=== PATIENT | female | born 1940 | race African-American/Black ===

== ENCOUNTER 2016-11-21 04:25 | Emergency (ER) | payer MEDICARE, MEDICAID ==
[~2016-11-21] VITALS: Ht 165.1 cm; Wt 59.0 kg
[~2016-11-21 04:25] MED LIST: AMIODARONE PO; AMLO2.5T45 PO; CALCIUM ACETATE PO; FAMO20TA8 PO; HYDR-3992 PO; LOSA100T14 PO; METO25TA6 PO; NEPVIT PO; PANT40TA4 PO; RISP0.5T19 PO
[2016-11-21] MEDS ORDERED: ACETAMINOPHEN 325MG TABLET PO ONE (07:00)
[2016-11-21 12:47] LABS: HEMOGLOBIN. 10.5 g/dL (12.0-16.0); MEAN CORPUSCULAR HEMOGLOBIN 28.8 pg (28.0-32.0); MEAN CORPUSCULAR VOLUME 90.4 fL (81.0-99.0); MEAN PLATELET VOLUME 7.9 fl (7.4-10.4); PLATELET 189 x1000/uL (130-400); RED BLOOD CELL COUNT 3.65 mill/uL (4.2-5.4); RED CELL DISTRIBUTION WIDTH 19.2 % (11.6-14.6)
[2016-11-21 12:56] LABS: INR 1.1; PROTHROMBIN TIME 11.1 sec
[2016-11-21 13:20] VITALS: BP 149/69
[2016-11-21 13:37] LABS: PLATELET ESTIMATE NORMAL
== END 2016-11-21 13:21 | disposition home or self-care (01) ==
LOC: ER 04:31
DX: I73.9 Peripheral vascular disease, unspecified (principal); I10 Essential (primary) hypertension; J44.9 Chronic obstructive pulmonary disease, unspecified
CPT/HCPCS: 36415; 80048; 85025; 85610; 99284

== ENCOUNTER 2017-02-11 22:04 | Inpatient (IN) | payer MEDICARE, OTHER ==
[~2017-02-11] VITALS: Ht 162.6 cm; Wt 60.3 kg
[2017-02-12] MEDS ORDERED: ONDANSETRON HCL 4MG/2ML VIAL IV STA (01:24)
[2017-02-12] MEDS ORDERED: MORPHINE SULFATE 4 MG/ML CPJ (NOT FOR IM USE) IV STA (01:24)
[2017-02-12] MEDS ORDERED: SODIUM CHLORIDE 0.9% 500 ML IV ONE (01:24)
[2017-02-12 01:51] LABS: BASOPHILS % 0.4 % (0.0-2.0); EOSINOPHILS % 3.3 % (0.0-5.0); HEMATOCRIT. 38.4 % (36.0-48.0); HEMOGLOBIN. 12.2 g/dL (12.0-16.0); LYMPHOCYTES % 12.6 % (20.0-50.0); MEAN CORPUSCULAR HEMOGLOBIN 30.6 pg (28.0-32.0); MEAN CORPUSCULAR VOLUME 96.3 fL (81.0-99.0); MEAN PLATELET VOLUME 7.3 fl (7.4-10.4); MONOCYTES % 14.3 % (2.0-8.0); NEUTROPHILS % 69.4 % (40.0-76.0); PLATELET 240 x1000/uL (130-400); RED BLOOD CELL COUNT 3.98 mill/uL (4.2-5.4); RED CELL DISTRIBUTION WIDTH 17.6 % (11.6-14.6)
[2017-02-12 01:58] LABS: INR 1.2
[2017-02-12 02:02] LABS: CARBON DIOXIDE 30 mEq/L (21-32); CHLORIDE 94 mEq/L (98-107); TROPONIN I 0.03 ng/mL (0.00-0.04)
[2017-02-12] MEDS ORDERED: HEPARIN 25,000 UNITS PREMIX 500 ML IV PRN (05:00)
[2017-02-12] MEDS ORDERED: HEPARIN 5000 UNITS/ML VIAL IV SCH (05:00)
[2017-02-12] MEDS ORDERED: HEPARIN 5000 UNITS/ML VIAL IV PRN ×2 (05:00)
[2017-02-12] MEDS ORDERED: HEPARIN BOLUS PRN aPTT <36 IV ×2 (05:15→06:07)
[2017-02-12] MEDS ORDERED: HEPARIN BOLUS PRN aPTT 37-44 IV ×2 (05:15→06:08)
[2017-02-12] MEDS ORDERED: HEPARIN 80 UNITS/KG BOLUS IV SCH ×2 (05:15→06:15)
[2017-02-12] MEDS ORDERED: HEPARIN 25,000 UNITS PREMIX 500 ML IV SCH (05:15)
[2017-02-12] MEDS ORDERED: SODIUM CHLORIDE 0.9% 10ML VIAL ONE (06:00)
[2017-02-12] MEDS ORDERED: IOHEXOL-300 100 ML BOTTLE ONE (06:00)
[2017-02-12 06:29] LABS: CLARITY URINE CLEAR (CLEAR); COLOR URINE YELLOW (YELLOW); GLUCOSE URINE NEGATIVE (NEGATIVE); KETONES URINE NEGATIVE (NEGATIVE); LEUKOCYTE ESTERASE URINE NEGATIVE (NEGATIVE); NITRITE URINE NEGATIVE (NEGATIVE); OCCULT BLOOD URINE NEGATIVE (NEGATIVE); PH URINE 8.5 (4.5-8.0); PROTEIN URINE 3+ (NEGATIVE); SPECIFIC GRAVITY URINE 1.017 (1.005-1.030); UROBILINOGEN URINE 0.2 E.U./dL (0.2-1.0)
[2017-02-12] MEDS ORDERED: NITROGLYCERIN 0.4MG TABLET SL SL PRN (07:30)
[2017-02-12] MEDS ORDERED: GUAIFENESIN 200MG/10ML SUGAR FREE UDC PO PRN (07:30)
[2017-02-12] MEDS ORDERED: CLONIDINE 0.1MG TABLET PO PRN (07:30)
[2017-02-12] MEDS ORDERED: TRAMADOL 50MG TABLET PO PRN (07:30)
[2017-02-12] MEDS ORDERED: ACETAMINOPHEN 325MG TABLET PO PRN (07:30)
[2017-02-12] MEDS ORDERED: ONDANSETRON HCL 4MG/2ML VIAL IV PRN (07:30)
[2017-02-12] MEDS ORDERED: PIPERACILLIN/TAZ 3.375G PREMIX 50 ML IV SCH (07:30)
[2017-02-12] MEDS ORDERED: ZOLPIDEM TARTRATE 5MG TABLET PO PRN (07:30)
[2017-02-12] MEDS ORDERED: DOCUSATE SODIUM 100MG CAPSULE PO PRN (07:30)
[2017-02-12] MEDS ORDERED: IPRATROPIUM/ALBUTEROL 0.5-3(2.5)MG/3ML NEB INH PRN (07:30)
[2017-02-12] MEDS ORDERED: ENOXAPARIN 40MG/0.4ML SYR SUBCUT SCH (07:30)
[2017-02-12] MEDS ORDERED: NA PHOS,M-B/NA PHOS,DI-BA ENEMA 118ML PR PRN (07:30)
[2017-02-12 08:20] VITALS: BP 121/72
[2017-02-12] MEDS: SEVELAMER CARBONATE 800 MG TABLET PO SCH ×3 (08:24→17:50)
[2017-02-12 09:00] VITALS: BP 121/51
[2017-02-12] MEDS: GUAIFENESIN/DM 600MG/30MG ER TAB 12HR PO SCH ×2 (09:00→21:40)
[2017-02-12] MEDS: METOPROLOL TARTRATE 25MG TABLET PO SCH ×2 (09:00→21:00)
[2017-02-12] MEDS ORDERED: FAMOTIDINE 20MG/2ML VIAL IV SCH ×2 (09:00)
[2017-02-12] MEDS: LISINOPRIL 20MG TABLET PO SCH ×2 (09:00→21:00)
[2017-02-12] MEDS: FOLIC ACID/VITAMIN B COMP W-C TABLET PO SCH (09:00)
[2017-02-12] MEDS: ASPIRIN 325MG EC TABLET PO SCH (09:00)
[2017-02-12] MEDS ORDERED: PIPERACILLIN/TAZ 2.25G PREMIX 50 ML IV SCH (10:00)
[2017-02-12 12:28] VITALS: BP 143/64
[2017-02-12] MEDS: MAGNESIUM/ALUMINUM HYDROXIDE/SIMETHICONE 30ML UDC PO PRN ×2 (13:00→23:12)
[2017-02-12] MEDS ORDERED: PNEUMOCOCCAL 23-VAL P-SAC VAC 0.5 ML IM ONE (15:30)
[2017-02-12] MEDS: DIPHENHYDRAMINE 50MG/ML VIAL IV PRN ×2 (16:00→22:27)
[2017-02-12 16:37] VITALS: BP 166/75
[2017-02-12] MEDS: LORAZEPAM 2MG/ML CPJ IV PRN (18:07)
[2017-02-12 19:07] LABS: CREATINE KINASE MB FRACTION 1.1 ng/mL (0.5-3.6); TROPONIN I 0.03 ng/mL (0.00-0.04)
[2017-02-12] MEDS ORDERED: LISI-604 PO (20:02)
[2017-02-12] MEDS ORDERED: OMPERAZOLE (20:02)
[2017-02-12] MEDS ORDERED: ENOXAPARIN 30MG/0.3ML SYR SUBCUT SCH (21:00)
[2017-02-12 21:04] VITALS: BP 106/55
[2017-02-12] MEDS: PIPERACILLIN/TAZ 2.25G PREMIX 50 ML IV SCH ×2 (21:40→21:41)
[2017-02-12 23:54] VITALS: BP 118/63
[2017-02-13] MEDS: LORAZEPAM 2MG/ML CPJ IV PRN (00:08)
[2017-02-13 02:53] LABS: CREATINE KINASE 110 IU/L (26-192); CREATINE KINASE MB FRACTION 0.7 ng/mL (0.5-3.6)
[2017-02-13 03:25] LABS: TROPONIN I < 0.02 ng/mL (0.00-0.04)
[2017-02-13] MEDS: PIPERACILLIN/TAZ 2.25G PREMIX 50 ML IV SCH ×3 (05:35→21:07)
[2017-02-13 07:10] LABS: HEMATOCRIT 36.7 % (36.0-48.0); HEMOGLOBIN 11.7 g/dL (12.0-16.0); MEAN CORPUSCULAR HEMOGLOBIN 30.5 pg (28.0-32.0); PLATELET 205 x1000/uL (130-400); RED BLOOD CELL COUNT 3.83 mill/uL (4.2-5.4); RED CELL DISTRIBUTION WIDTH 17.3 % (11.6-14.6)
[2017-02-13] MEDS: SEVELAMER CARBONATE 800 MG TABLET PO SCH ×3 (07:50→17:50)
[2017-02-13 07:53] LABS: PHOSPHORUS 3.8 mg/dL (2.5-4.9)
[2017-02-13 08:00] VITALS: BP 108/56
[2017-02-13] MEDS: METOPROLOL TARTRATE 25MG TABLET PO SCH ×2 (09:00→21:00)
[2017-02-13] MEDS ORDERED: FOLIC ACID/VITAMIN B COMP W-C TABLET PO SCH (09:00)
[2017-02-13] MEDS: LISINOPRIL 20MG TABLET PO SCH ×2 (09:00→21:00)
[2017-02-13] MEDS: ASPIRIN 325MG EC TABLET PO SCH (09:00)
[2017-02-13] MEDS ORDERED: BARIUM SULFATE 450ML ORAL SUSP ONE (11:35)
[2017-02-13 12:00] VITALS: BP 103/52
[2017-02-13] MEDS: PANTOPRAZOLE SODIUM 40 MG/VIAL IV SCH (12:13)
[2017-02-13] MEDS: MAGNESIUM/ALUMINUM HYDROXIDE/SIMETHICONE 30ML UDC PO PRN (15:16)
[2017-02-13] MEDS: GUAIFENESIN/DM 600MG/30MG ER TAB 12HR PO SCH ×2 (15:22→21:00)
[2017-02-13] MEDS: FOLIC ACID/VITAMIN B COMP W-C TABLET PO SCH (15:22)
[2017-02-13 16:00] VITALS: BP 102/53
[2017-02-13 20:00] VITALS: BP 97/47
[2017-02-13] MEDS: DIPHENHYDRAMINE 50MG/ML VIAL IV PRN (22:51)
[2017-02-14] VITALS (8 sets, daily range): BP systolic 94–120; BP diastolic 43–59
[2017-02-14] MEDS: LORAZEPAM 2MG/ML CPJ IV PRN (02:15)
[2017-02-14] MEDS: PIPERACILLIN/TAZ 2.25G PREMIX 50 ML IV SCH ×3 (05:19→21:10)
[2017-02-14 06:20] LABS: HEMATOCRIT 34.1 % (36.0-48.0); HEMOGLOBIN 10.8 g/dL (12.0-16.0); MEAN CORPUSCULAR HEMOGLOBIN 30.6 pg (28.0-32.0); MEAN CORPUSCULAR VOLUME 96.7 fL (81.0-99.0); PLATELET 176 x1000/uL (130-400); RED BLOOD CELL COUNT 3.53 mill/uL (4.2-5.4); RED CELL DISTRIBUTION WIDTH 17.2 % (11.6-14.6)
[2017-02-14 06:22] LABS: INR 1.2
[2017-02-14] MEDS: SEVELAMER CARBONATE 800 MG TABLET PO SCH ×3 (07:50→18:58)
[2017-02-14] MEDS: ASPIRIN 325MG EC TABLET PO SCH (09:00)
[2017-02-14] MEDS: LISINOPRIL 20MG TABLET PO SCH ×2 (09:00→21:00)
[2017-02-14] MEDS: METOPROLOL TARTRATE 25MG TABLET PO SCH ×2 (09:00→21:13)
[2017-02-14] MEDS: FOLIC ACID/VITAMIN B COMP W-C TABLET PO SCH (09:00)
[2017-02-14] MEDS: DIPHENHYDRAMINE 50MG/ML VIAL IV PRN ×2 (10:02→21:14)
[2017-02-14] MEDS: GUAIFENESIN/DM 600MG/30MG ER TAB 12HR PO SCH ×2 (10:46→21:13)
[2017-02-14] MEDS ORDERED: HYDROXYZINE 25MG TABLET PO PRN (11:30)
[2017-02-14] MEDS: MAGNESIUM/ALUMINUM HYDROXIDE/SIMETHICONE 30ML UDC PO PRN (11:36)
[2017-02-14] MEDS ORDERED: SIMETHICONE 40 MG/0.6 ML 30ML ONE ×2 (14:02→14:41)
[2017-02-14] MEDS ORDERED: SODIUM CHLORIDE 0.9% 10ML VIAL ONE (14:02)
[2017-02-14] MEDS ORDERED: MIDAZOLAM HCL 5 MG/5 ML VIAL IV PRN (14:40)
[2017-02-14] MEDS ORDERED: FENTANYL CITRATE/PF 50MCG/ML 2ML VIAL ONE (14:42)
[2017-02-14] MEDS ORDERED: MIDAZOLAM HCL 5 MG/5 ML VIAL ONE (14:42)
[2017-02-14] MEDS: PANTOPRAZOLE SODIUM 40 MG/VIAL IV SCH (16:06)
[2017-02-14] MEDS: CALAMINE LOTION 120ML TOP PRN ×2 (16:55→21:13)
[2017-02-15 00:22] VITALS: BP 126/76
[2017-02-15 04:00] VITALS: BP 131/83
[2017-02-15] MEDS: PIPERACILLIN/TAZ 2.25G PREMIX 50 ML IV SCH (05:44)
[2017-02-15 07:06] LABS: HEMATOCRIT 32.6 % (36.0-48.0); HEMOGLOBIN 10.2 g/dL (12.0-16.0); MEAN CORPUSCULAR HEMOGLOBIN 30.6 pg (28.0-32.0); MEAN CORPUSCULAR VOLUME 97.5 fL (81.0-99.0); PLATELET 164 x1000/uL (130-400); RED BLOOD CELL COUNT 3.35 mill/uL (4.2-5.4); RED CELL DISTRIBUTION WIDTH 16.9 % (11.6-14.6)
[2017-02-15 08:00] VITALS: BP 138/57
[2017-02-15] MEDS: SEVELAMER CARBONATE 800 MG TABLET PO SCH ×2 (09:28→13:07)
[2017-02-15] MEDS: GUAIFENESIN/DM 600MG/30MG ER TAB 12HR PO SCH (09:28)
[2017-02-15] MEDS: FOLIC ACID/VITAMIN B COMP W-C TABLET PO SCH (09:28)
[2017-02-15] MEDS: PANTOPRAZOLE SODIUM 40 MG/VIAL IV SCH (09:28)
[2017-02-15] MEDS: LISINOPRIL 20MG TABLET PO SCH (09:29)
[2017-02-15] MEDS: ASPIRIN 325MG EC TABLET PO SCH (09:29)
[2017-02-15] MEDS: METOPROLOL TARTRATE 25MG TABLET PO SCH (09:29)
[2017-02-15 12:00] VITALS: BP 152/54
[2017-02-15 16:00] VITALS: BP 120/57
[2017-02-15 16:03] VITALS: BP 152/60
== END 2017-02-15 19:10 | DRG 177 ==
LOC: ER 22:30 → 6WST 02-12 05:12 → EDBEDREQ 02-12 05:24 → ENRESERV 02-12 06:19 → SUPCPDRO 02-12 07:24
PROVIDERS: ADMIT Internal Medicine; ATTEND Internal Medicine
PROC: 0DJ68ZZ Inspection of Stomach, Via Natural or Artificial Opening Endoscopic (ICD-10-PCS; principal; 2017-02-14 15:00)
DX: J69.0 Pneumonitis due to inhalation of food and vomit (principal); J96.00 Acute respiratory failure, unspecified whether with hypoxia or hypercapnia; I26.99 Other pulmonary embolism without acute cor pulmonale; E44.0 Moderate protein-calorie malnutrition; N18.6 End stage renal disease; I12.0 Hypertensive chronic kidney disease with stage 5 chronic kidney disease or end stage renal disease; I48.0 Paroxysmal atrial fibrillation; K22.0 Achalasia of cardia; E87.1 Hypo-osmolality and hyponatremia; E11.22 Type 2 diabetes mellitus with diabetic chronic kidney disease; J44.9 Chronic obstructive pulmonary disease, unspecified; D63.8 Anemia in other chronic diseases classified elsewhere; K21.9 Gastro-esophageal reflux disease without esophagitis; K44.9 Diaphragmatic hernia without obstruction or gangrene; K57.90 Diverticulosis of intestine, part unspecified, without perforation or abscess without bleeding; E11.51 Type 2 diabetes mellitus with diabetic peripheral angiopathy without gangrene; Z79.01 Long term (current) use of anticoagulants; Z99.2 Dependence on renal dialysis; Z99.81 Dependence on supplemental oxygen; Z68.22 Body mass index [BMI] 22.0-22.9, adult
CPT/HCPCS: 36415; 70551; 71010; 71260; 74177; 74220; 80048; 80053; 81001; 82550; 82553; 82962; 83690; 83880; 84100; 84484; 85025; 85027; 85610; 85730; 92610; 93005; 96361; 96365; 96375; 97162; 97166; 97530; 97535; 99291; A4216; C1893; C9113; J1200; J1644; J1650; J2060; J2250; J2270; J2405; J2543; J3010; J3490; J7030; J7050; Q9967

== ENCOUNTER 2017-07-08 10:39 | Inpatient (IN) | payer MEDICARE, MEDICAID, OTHER ==
[~2017-07-08] VITALS: Ht 157.5 cm; Wt 66.7 kg
[~2017-07-08 10:39] MED LIST changes: +ACET-2853 PO; -AMIODARONE PO; -AMLO2.5T45 PO; +ASPI-867 PO; -CALCIUM ACETATE PO; +CARV3.1242 PO; +CLON-457 PO; +DIPH25CA83 PO; +DOCU-138 PO; +FAMO-135 PO; -FAMO20TA8 PO; -HYDR-3992 PO; -LOSA100T14 PO; -METO25TA6 PO; -NEPVIT PO; +NITR0.4T SL; +ONDA4TAB5 PO; -PANT40TA4 PO; -RISP0.5T19 PO; +SEVE800T8 PO; +TRAM50TA3 PO; +ZOLP5TAB2 PO; +[UNRECOGNIZED DRUG - CODE] PO
[2017-07-08 12:28] LABS: HEMATOCRIT. 29.7 % (36.0-48.0); HEMOGLOBIN. 9.3 g/dL (12.0-16.0); MEAN CORPUSCULAR HEMOGLOBIN 28.5 pg (28.0-32.0); MEAN CORPUSCULAR VOLUME 90.9 fL (81.0-99.0); MEAN PLATELET VOLUME 8.1 fl (7.4-10.4); PLATELET 294 x1000/uL (130-400); RED BLOOD CELL COUNT 3.27 mill/uL (4.2-5.4); RED CELL DISTRIBUTION WIDTH 18.5 % (11.6-14.6)
[2017-07-08 12:36] LABS: CHLORIDE 100 mEq/L (98-107)
[2017-07-08 12:46] LABS: INR 1.2; PROTHROMBIN TIME 12.7 sec (9.4-11.6)
[2017-07-08 13:04] LABS: CLARITY URINE TURBID (CLEAR); COLOR URINE YELLOW (YELLOW); KETONES URINE TRACE (NEGATIVE); LEUKOCYTE ESTERASE URINE 3+ (NEGATIVE); NITRITE URINE NEGATIVE (NEGATIVE); OCCULT BLOOD URINE 3+ (NEGATIVE); PH URINE 7.5 (4.5-8.0); PROTEIN URINE 4+ (NEGATIVE); SPECIFIC GRAVITY URINE 1.028 (1.005-1.030); UROBILINOGEN URINE 0.2 E.U./dL (0.2-1.0)
[2017-07-08] MEDS ORDERED: SODIUM CHLORIDE 0.9% 1,000 ML IV ONE (13:07)
[2017-07-08] MEDS ORDERED: CEFTRIAXONE 1 G PREMIX 50 ML IV ONE (13:15)
[2017-07-08] MEDS ORDERED: LEVOFLOXACIN 750MG PREMIX 150 ML IV ONE (13:15)
[2017-07-08 13:18] LABS: PLATELET ESTIMATE NORMAL
[2017-07-08] MEDS ORDERED: TRAMADOL 50MG TABLET PO PRN (16:30)
[2017-07-08] MEDS ORDERED: DEXTROSE 50% WATER 50ML SYRINGE IV ONE (17:00)
[2017-07-08] MEDS ORDERED: IPRATROPIUM/ALBUTEROL 0.5-3(2.5)MG/3ML NEB INH PRN (17:45)
[2017-07-08] MEDS ORDERED: GUAIFENESIN 200MG/10ML SUGAR FREE UDC PO PRN (17:45)
[2017-07-08] MEDS ORDERED: ACETAMINOPHEN 325MG TABLET PO PRN (17:45)
[2017-07-08] MEDS ORDERED: MAGNESIUM/ALUMINUM HYDROXIDE/SIMETHICONE 30ML UDC PO PRN (17:45)
[2017-07-08] MEDS ORDERED: DOCUSATE SODIUM 100MG CAPSULE PO PRN (17:45)
[2017-07-08] MEDS ORDERED: ONDANSETRON HCL 4MG/2ML VIAL IV PRN (17:45)
[2017-07-08] MEDS ORDERED: DEXTROSE 50% WATER 50ML SYRINGE IV PRN (17:45)
[2017-07-08] MEDS ORDERED: CLONIDINE 0.1MG TABLET PO PRN (17:45)
[2017-07-08] MEDS ORDERED: NITROGLYCERIN 0.4MG TABLET SL SL PRN (17:45)
[2017-07-08] MEDS ORDERED: PIPERACILLIN/TAZ 3.375G PREMIX 50 ML IV SCH (17:45)
[2017-07-08] MEDS ORDERED: NA PHOS,M-B/NA PHOS,DI-BA ENEMA 118ML PR PRN (18:30)
[2017-07-08 19:50] VITALS: BP 167/90
[2017-07-08 20:00] VITALS: BP 167/90
[2017-07-08] MEDS ORDERED: VANCOMYCIN 1250MG in DEXTROSE 5% WATER 250ML IV NR (20:00)
[2017-07-08] MEDS: FAMOTIDINE 20MG/2ML VIAL IV SCH (20:42)
[2017-07-08] MEDS: ENOXAPARIN 30MG/0.3ML SYR SUBCUT SCH ×2 (20:42→21:00)
[2017-07-08] MEDS ORDERED: ZOLPIDEM TARTRATE 5MG TABLET PO PRN (21:00)
[2017-07-08] MEDS: INSULIN LISPRO 100 UNITS/ML SUBCUT SCH (21:00)
[2017-07-08] MEDS: CARVEDILOL 3.125 MG TABLET PO SCH (21:39)
[2017-07-08] MEDS: AMLODIPINE 10MG TABLET PO SCH (21:39)
[2017-07-08] MEDS: BLOOD SUGAR DIAGNOSTIC STRIP TEST SCH (21:46)
[2017-07-08] MEDS: PIPERACILLIN/TAZ 2.25G PREMIX 50 ML IV SCH (23:18)
[2017-07-09] VITALS: BP 186/93
[2017-07-09] MEDS: NITROGLYCERIN 0.4MG/HR PATCH TOP SCH ×2 (00:24→09:00)
[2017-07-09 01:07] LABS: CREATINE KINASE MB FRACTION 2.5 ng/mL (0.5-3.6); TROPONIN I 0.04 ng/mL (0.00-0.04)
[2017-07-09 04:00] VITALS: BP 191/92
[2017-07-09] MEDS ORDERED: MORPHINE SULFATE 4 MG/ML CPJ (NOT FOR IM USE) IV PRN (05:30)
[2017-07-09] MEDS: PIPERACILLIN/TAZ 2.25G PREMIX 50 ML IV SCH ×3 (05:43→21:06)
[2017-07-09] MEDS: CARVEDILOL 3.125 MG TABLET PO SCH ×2 (05:44→17:24)
[2017-07-09] MEDS: BLOOD SUGAR DIAGNOSTIC STRIP TEST SCH ×4 (06:28→21:06)
[2017-07-09] MEDS: INSULIN LISPRO 100 UNITS/ML SUBCUT SCH ×4 (06:32→20:44)
[2017-07-09] MEDS: SEVELAMER CARBONATE 800 MG TABLET PO SCH ×3 (07:50→17:11)
[2017-07-09 08:00] VITALS: BP 152/69
[2017-07-09] MEDS: FOLIC ACID/VITAMIN B COMP W-C TABLET PO SCH (09:00)
[2017-07-09] MEDS: ASPIRIN 325MG EC TABLET PO SCH (09:00)
[2017-07-09] MEDS: AMLODIPINE 10MG TABLET PO SCH (09:00)
[2017-07-09 12:00] VITALS: BP 136/66
[2017-07-09 13:16] LABS: AMMONIA < 25 uMol/L (<32)
[2017-07-09 13:21] LABS: CREATINE KINASE MB FRACTION 2.5 ng/mL (0.5-3.6); TROPONIN I 0.05 ng/mL (0.00-0.04)
[2017-07-09 16:00] VITALS: BP 138/68
[2017-07-09] MEDS: LORAZEPAM 0.5MG TABLET PO PRN (19:54)
[2017-07-09 20:00] VITALS: BP 208/188
[2017-07-09] MEDS: FAMOTIDINE 20MG/2ML VIAL IV SCH (20:11)
[2017-07-09] MEDS: ENOXAPARIN 30MG/0.3ML SYR SUBCUT SCH (20:11)
[2017-07-09] MEDS: DIPHENHYDRAMINE 50MG/ML VIAL IV PRN (20:25)
[2017-07-09] MEDS ORDERED: EPOETIN ALFA 10000UNITS/ML VIAL SUBCUT SCH (21:00)
[2017-07-10] VITALS: BP 119/59
[2017-07-10] MEDS: CARVEDILOL 3.125 MG TABLET PO SCH ×2 (05:28→17:35)
[2017-07-10] MEDS: PIPERACILLIN/TAZ 2.25G PREMIX 50 ML IV SCH ×3 (05:29→21:41)
[2017-07-10 06:00] VITALS: BP 125/53
[2017-07-10] MEDS: BLOOD SUGAR DIAGNOSTIC STRIP TEST SCH ×4 (06:03→21:27)
[2017-07-10] MEDS: INSULIN LISPRO 100 UNITS/ML SUBCUT SCH ×4 (06:03→21:00)
[2017-07-10 07:52] LABS: HEMATOCRIT 29.4 % (36.0-48.0); HEMOGLOBIN 9.5 g/dL (12.0-16.0); MEAN CORPUSCULAR HEMOGLOBIN 28.9 pg (28.0-32.0); MEAN CORPUSCULAR VOLUME 89.1 fL (81.0-99.0); PLATELET 208 x1000/uL (130-400); RED BLOOD CELL COUNT 3.29 mill/uL (4.2-5.4); RED CELL DISTRIBUTION WIDTH 18.5 % (11.6-14.6)
[2017-07-10 08:04] VITALS: BP 130/85
[2017-07-10 08:24] LABS: AMMONIA < 25 uMol/L (<32)
[2017-07-10] MEDS: FOLIC ACID/VITAMIN B COMP W-C TABLET PO SCH (08:54)
[2017-07-10] MEDS: ASPIRIN 325MG EC TABLET PO SCH (08:54)
[2017-07-10] MEDS: SEVELAMER CARBONATE 800 MG TABLET PO SCH ×3 (08:54→17:34)
[2017-07-10] MEDS: NITROGLYCERIN 0.4MG/HR PATCH TOP SCH (08:54)
[2017-07-10] MEDS: AMLODIPINE 10MG TABLET PO SCH (08:54)
[2017-07-10 12:32] VITALS: BP 122/47
[2017-07-10] MEDS ORDERED: VANCOMYCIN 1 G PREMIX 200 ML IV NR (13:00)
[2017-07-10 16:34] VITALS: BP 117/57
[2017-07-10 20:50] VITALS: BP 113/51
[2017-07-10] MEDS: FAMOTIDINE 20MG/2ML VIAL IV SCH (21:41)
[2017-07-10] MEDS: ENOXAPARIN 30MG/0.3ML SYR SUBCUT SCH (21:42)
[2017-07-11] VITALS: BP 132/52
[2017-07-11 04:00] VITALS: BP 135/55
[2017-07-11] MEDS: BLOOD SUGAR DIAGNOSTIC STRIP TEST SCH ×4 (06:25→21:09)
[2017-07-11] MEDS: CARVEDILOL 3.125 MG TABLET PO SCH ×2 (06:26→19:17)
[2017-07-11] MEDS: PIPERACILLIN/TAZ 2.25G PREMIX 50 ML IV SCH ×2 (06:26→19:09)
[2017-07-11 07:40] LABS: HEMATOCRIT 34.4 % (36.0-48.0); HEMOGLOBIN 10.6 g/dL (12.0-16.0); MEAN CORPUSCULAR HEMOGLOBIN 28.2 pg (28.0-32.0); MEAN CORPUSCULAR VOLUME 91.9 fL (81.0-99.0); PLATELET 170 x1000/uL (130-400); RED BLOOD CELL COUNT 3.74 mill/uL (4.2-5.4); RED CELL DISTRIBUTION WIDTH 18.2 % (11.6-14.6)
[2017-07-11 07:45] VITALS: BP 140/56
[2017-07-11] MEDS: INSULIN LISPRO 100 UNITS/ML SUBCUT SCH ×4 (07:50→21:00)
[2017-07-11] MEDS: AMLODIPINE 10MG TABLET PO SCH (09:00)
[2017-07-11] MEDS: NITROGLYCERIN 0.4MG/HR PATCH TOP SCH (09:00)
[2017-07-11] MEDS: SEVELAMER CARBONATE 800 MG TABLET PO SCH ×3 (09:09→19:09)
[2017-07-11] MEDS: FOLIC ACID/VITAMIN B COMP W-C TABLET PO SCH (09:11)
[2017-07-11] MEDS: ASPIRIN 325MG EC TABLET PO SCH (09:11)
[2017-07-11] MEDS: LORAZEPAM 0.5MG TABLET PO PRN (11:00)
[2017-07-11 12:12] VITALS: BP 153/59
[2017-07-11] MEDS: DIPHENHYDRAMINE 50MG/ML VIAL IV PRN (13:14)
[2017-07-11 16:24] VITALS: BP 139/83
[2017-07-11 20:30] VITALS: BP 131/65
[2017-07-11] MEDS: ENOXAPARIN 30MG/0.3ML SYR SUBCUT SCH (21:00)
[2017-07-11] MEDS: FAMOTIDINE 20MG/2ML VIAL IV SCH (21:15)
[2017-07-12] VITALS (8 sets, daily range): BP systolic 110–153; BP diastolic 53–87
[2017-07-12] MEDS: PIPERACILLIN/TAZ 2.25G PREMIX 50 ML IV SCH ×2 (02:45→09:17)
[2017-07-12] MEDS: BLOOD SUGAR DIAGNOSTIC STRIP TEST SCH ×4 (06:01→21:00)
[2017-07-12] MEDS: CARVEDILOL 3.125 MG TABLET PO SCH ×2 (06:21→18:00)
[2017-07-12 06:57] LABS: HEMOGLOBIN 10.7 g/dL (12.0-16.0); HEMOGLOBIN. 10.7 g/dL (12.0-16.0); MEAN CORPUSCULAR HEMOGLOBIN 28.2 pg (28.0-32.0); MEAN CORPUSCULAR VOLUME 89.7 fL (81.0-99.0); MEAN PLATELET VOLUME 8.3 fl (7.4-10.4); PLATELET 191 x1000/uL (130-400); RED CELL DISTRIBUTION WIDTH 18.3 % (11.6-14.6)
[2017-07-12] MEDS: INSULIN LISPRO 100 UNITS/ML SUBCUT SCH ×4 (07:50→21:00)
[2017-07-12] MEDS: AMLODIPINE 10MG TABLET PO SCH (09:00)
[2017-07-12 09:16] LABS: PLATELET ESTIMATE NORMAL
[2017-07-12] MEDS: NITROGLYCERIN 0.4MG/HR PATCH TOP SCH (09:16)
[2017-07-12] MEDS: ASPIRIN 325MG EC TABLET PO SCH (09:16)
[2017-07-12] MEDS: SEVELAMER CARBONATE 800 MG TABLET PO SCH ×3 (09:16→17:50)
[2017-07-12] MEDS: FOLIC ACID/VITAMIN B COMP W-C TABLET PO SCH (09:16)
[2017-07-12] MEDS: ENOXAPARIN 30MG/0.3ML SYR SUBCUT SCH (21:07)
[2017-07-12] MEDS: FAMOTIDINE 20MG/2ML VIAL IV SCH (21:07)
[2017-07-13] VITALS: BP 149/67
[2017-07-13 04:00] VITALS: BP 151/63
[2017-07-13] MEDS: CARVEDILOL 3.125 MG TABLET PO SCH ×2 (05:56→18:06)
[2017-07-13] MEDS: SUCRALFATE 1 G/10 ML UDC PO SCH ×3 (05:57→18:06)
[2017-07-13] MEDS: BLOOD SUGAR DIAGNOSTIC STRIP TEST SCH ×3 (06:27→18:07)
[2017-07-13 07:10] LABS: HEMOGLOBIN 12.3 g/dL (12.0-16.0); MEAN CORPUSCULAR HEMOGLOBIN 28.4 pg (28.0-32.0); PLATELET 212 x1000/uL (130-400); RED BLOOD CELL COUNT 4.35 mill/uL (4.2-5.4); RED CELL DISTRIBUTION WIDTH 18.3 % (11.6-14.6)
[2017-07-13 07:32] LABS: PHOSPHORUS 3.2 mg/dL (2.5-4.9)
[2017-07-13] MEDS: INSULIN LISPRO 100 UNITS/ML SUBCUT SCH ×3 (07:50→17:50)
[2017-07-13 08:23] VITALS: BP 162/75
[2017-07-13] MEDS ORDERED: AMLODIPINE 5MG TABLET PO SCH (09:00)
[2017-07-13] MEDS: ASPIRIN 325MG EC TABLET PO SCH (09:52)
[2017-07-13] MEDS: FOLIC ACID/VITAMIN B COMP W-C TABLET PO SCH (09:52)
[2017-07-13] MEDS: NITROGLYCERIN 0.4MG/HR PATCH TOP SCH (09:52)
[2017-07-13] MEDS ORDERED: SODIUM POLYSTYRENE SULFONATE 15 G/60 ML BOT PO NR (09:52)
[2017-07-13] MEDS: SEVELAMER CARBONATE 800 MG TABLET PO SCH ×3 (09:53→18:06)
[2017-07-13 12:04] VITALS: BP 132/65
[2017-07-13 16:50] VITALS: BP 138/75
== END 2017-07-13 18:30 | DRG 871 ==
LOC: ER 11:13 → 6WST 13:30 → ENRESERV 16:12 → 6WST 07-09 03:30
PROVIDERS: ADMIT Internal Medicine; ATTEND Internal Medicine
PROC: 5A1D70Z Performance of Urinary Filtration, Intermittent, Less than 6 Hours Per Day (ICD-10-PCS; principal; 2017-07-09)
PROC: 5A1D70Z Performance of Urinary Filtration, Intermittent, Less than 6 Hours Per Day (ICD-10-PCS; 2017-07-10)
PROC: 5A1D70Z Performance of Urinary Filtration, Intermittent, Less than 6 Hours Per Day (ICD-10-PCS; 2017-07-11)
PROC: 5A1D70Z Performance of Urinary Filtration, Intermittent, Less than 6 Hours Per Day (ICD-10-PCS; 2017-07-12)
DX: A41.9 Sepsis, unspecified organism (principal); G92 Toxic encephalopathy; J96.00 Acute respiratory failure, unspecified whether with hypoxia or hypercapnia; I13.2 Hypertensive heart and chronic kidney disease with heart failure and with stage 5 chronic kidney disease, or end stage renal disease; E44.0 Moderate protein-calorie malnutrition; J18.1 Lobar pneumonia, unspecified organism; L89.159 Pressure ulcer of sacral region, unspecified stage; N18.6 End stage renal disease; I27.20 Pulmonary hypertension, unspecified; E11.22 Type 2 diabetes mellitus with diabetic chronic kidney disease; I50.43 Acute on chronic combined systolic (congestive) and diastolic (congestive) heart failure; N39.0 Urinary tract infection, site not specified; E87.5 Hyperkalemia; R31.0 Gross hematuria; J44.9 Chronic obstructive pulmonary disease, unspecified; Z99.2 Dependence on renal dialysis; M21.612 Bunion of left foot; M21.611 Bunion of right foot; M20.40 Other hammer toe(s) (acquired), unspecified foot; K21.9 Gastro-esophageal reflux disease without esophagitis; Z91.19 Patient's noncompliance with other medical treatment and regimen; D63.8 Anemia in other chronic diseases classified elsewhere; Z99.81 Dependence on supplemental oxygen; Z86.711 Personal history of pulmonary embolism; Z78.1 Physical restraint status; Z79.899 Other long term (current) drug therapy; Z79.82 Long term (current) use of aspirin; Z68.26 Body mass index [BMI] 26.0-26.9, adult
CPT/HCPCS: 36415; 70450; 71045; 80048; 80053; 80202; 81003; 82140; 82550; 82553; 82962; 83036; 83605; 84100; 84132; 84484; 85025; 85027; 85610; 87040; 87086; 93005; 93970; 96365; 96366; 96375; 99285; A6261; C1893; J0696; J0885; J1200; J1650; J1956; J2405; J2543; J3370; J3490; J7030; J7050; J7060

== ENCOUNTER 2017-09-05 09:22 | Inpatient (IN) | payer MEDICARE, MEDICAID, OTHER ==
[~2017-09-05] VITALS: Ht 160 cm; Wt 54.9 kg
[2017-09-05] MEDS ORDERED: IPRATROPIUM BROMIDE (0.02%) 0.5MG/2.5ML NEB HHN STA (09:32)
[2017-09-05] MEDS ORDERED: NITROGLYCERIN OINT 1GM/INCH UDPKT TD STA (09:32)
[2017-09-05] MEDS ORDERED: METHYLPREDNISOLONE SOD SUCC 125 MG/2 ML VIAL IV STA (09:32)
[2017-09-05] MEDS ORDERED: ALBUTEROL (0.083%) 2.5MG/3ML NEB HHN STA (09:32)
[2017-09-05 10:10] LABS: INR 1.1; PROTHROMBIN TIME 10.9 sec (9.4-11.6)
[2017-09-05 10:12] LABS: CHLORIDE 97 mEq/L (98-107)
[2017-09-05 10:15] LABS: HEMATOCRIT. 30.8 % (36.0-48.0); HEMOGLOBIN. 9.8 g/dL (12.0-16.0); MEAN CORPUSCULAR HEMOGLOBIN 28.8 pg (28.0-32.0); MEAN CORPUSCULAR VOLUME 90.6 fL (81.0-99.0); MEAN PLATELET VOLUME 9.2 fl (7.4-10.4); PLATELET 226 x1000/uL (130-400); RED BLOOD CELL COUNT 3.41 mill/uL (4.2-5.4); RED CELL DISTRIBUTION WIDTH 16.7 % (11.6-14.6)
[2017-09-05 10:36] LABS: PLATELET ESTIMATE NORMAL
[2017-09-05 11:47] LABS: BG BASE EXCESS 0.1 mmol/L (-2.0-2.0); BG BILEVEL POS AIRWAY PRESSURE ST=15/5; BG CARBOXYHEMOGLOBIN 1.3 % (0.5-1.5); BG DEOXYHEMOGLOBIN 0.9 % (0.0-5.0); BG FRACTION INSPIRED OXYGEN 60; BG METHEMOGLOBIN 0.3 % (0.0-1.5); BG OXYHEMOGLOBIN 97.5 % (94.0-97.0); BG PCO2 56.4 mmHg (35.0-45.0); BG PH 7.298 (7.350-7.450); BG PO2 142.4 mmHg (75.0-100.0); BG PRESSURE SUPPORT 10; BG SAMPLE SITE RIGHT BRACHIAL; BG TOTAL HEMOGLOBIN 8.9 g/dL (12.0-18.0); BG VENT MODE MASK - BIPAP; BG VENT RATE 16 set
[2017-09-05] MEDS ORDERED: DOCUSATE SODIUM 100MG CAPSULE PO PRN (14:30)
[2017-09-05] MEDS ORDERED: IPRATROPIUM/ALBUTEROL 0.5-3(2.5)MG/3ML NEB INH PRN (14:30)
[2017-09-05] MEDS ORDERED: GUAIFENESIN 200MG/10ML SUGAR FREE UDC PO PRN (14:30)
[2017-09-05] MEDS ORDERED: CLONIDINE 0.1MG TABLET PO PRN (14:30)
[2017-09-05] MEDS ORDERED: IPRATROPIUM/ALBUTEROL 0.5-3(2.5)MG/3ML NEB HHN PRN (16:15)
[2017-09-05 18:30] VITALS: BP 157/74
[2017-09-05] MEDS: METHYLPREDNISOLONE SOD SUCC 40 MG/ML VIAL IV SCH (18:53)
[2017-09-05 20:00] VITALS: BP 150/80
[2017-09-05] MEDS: BUDESONIDE 0.5MG/2ML NEB HHN SCH (20:13)
[2017-09-05] MEDS: IPRATROPIUM/ALBUTEROL 0.5-3(2.5)MG/3ML NEB HHN SCH (20:13)
[2017-09-05 21:00] VITALS: BP 135/65
[2017-09-05] MEDS: ONDANSETRON HCL 4MG/2ML VIAL IV PRN (21:23)
[2017-09-05] MEDS: ACETAMINOPHEN 325MG TABLET PO PRN (21:24)
[2017-09-05 22:00] VITALS: BP 134/66
[2017-09-05 22:28] VITALS: BP 150/80
[2017-09-06] VITALS (11 sets, daily range): BP systolic 121–176; BP diastolic 52–76
[2017-09-06] MEDS: IPRATROPIUM/ALBUTEROL 0.5-3(2.5)MG/3ML NEB HHN SCH ×6 (01:06→21:38)
[2017-09-06] MEDS: METHYLPREDNISOLONE SOD SUCC 40 MG/ML VIAL IV SCH (08:43)
[2017-09-06] MEDS: AMLODIPINE 10MG TABLET PO SCH (08:44)
[2017-09-06] MEDS: ASPIRIN 81MG EC TABLET PO SCH (08:44)
[2017-09-06] MEDS: ONDANSETRON HCL 4MG/2ML VIAL IV PRN (10:01)
[2017-09-06] MEDS: ACETAMINOPHEN 325MG TABLET PO PRN ×3 (10:08→22:12)
[2017-09-06 10:10] LABS: HEMATOCRIT. 27.9 % (36.0-48.0); HEMOGLOBIN. 8.6 g/dL (12.0-16.0); MEAN CORPUSCULAR HEMOGLOBIN 27.8 pg (28.0-32.0); MEAN CORPUSCULAR VOLUME 90.4 fL (81.0-99.0); MEAN PLATELET VOLUME 9.4 fl (7.4-10.4); PLATELET 143 x1000/uL (130-400); RED BLOOD CELL COUNT 3.08 mill/uL (4.2-5.4); RED CELL DISTRIBUTION WIDTH 16.7 % (11.6-14.6)
[2017-09-06] MEDS: BUDESONIDE 0.5MG/2ML NEB HHN SCH ×2 (10:10→21:38)
[2017-09-06 10:18] LABS: BG BASE EXCESS -0.8 mmol/L (-2.0-2.0); BG CARBOXYHEMOGLOBIN 0.5 % (0.5-1.5); BG DEOXYHEMOGLOBIN 1.8 % (0.0-5.0); BG FRACTION INSPIRED OXYGEN 36; BG HCO3 ACT 25.3 mmol/L (22.0-26.0); BG METHEMOGLOBIN 0.3 % (0.0-1.5); BG OXYHEMOGLOBIN 97.4 % (94.0-97.0); BG PCO2 48.9 mmHg (35.0-45.0); BG PH 7.331 (7.350-7.450); BG PO2 111.9 mmHg (75.0-100.0); BG SAMPLE SITE RIGHT BRACHIAL; BG VENT MODE NASAL CANNULA
[2017-09-06 10:39] LABS: CHLORIDE 98 mEq/L (98-107)
[2017-09-06] MEDS: MAGNESIUM/ALUMINUM HYDROXIDE/SIMETHICONE 30ML UDC PO PRN (12:10)
[2017-09-06] MEDS: HYDROCODONE/APAP 7.5/325MG 1 TAB TABLET PO PRN ×2 (17:25→22:29)
[2017-09-06 19:17] LABS: CREATINE KINASE 16 IU/L (26-192)
[2017-09-06 19:18] LABS: CREATINE KINASE MB FRACTION 0.6 ng/mL (0.5-3.6)
[2017-09-06] MEDS: NITROGLYCERIN OINT 1GM/INCH UDPKT TD SCH (22:17)
[2017-09-07] VITALS (10 sets, daily range): BP systolic 128–146; BP diastolic 56–85
[2017-09-07] MEDS: IPRATROPIUM/ALBUTEROL 0.5-3(2.5)MG/3ML NEB HHN SCH ×6 (00:44→21:51)
[2017-09-07] MEDS: NITROGLYCERIN OINT 1GM/INCH UDPKT TD SCH ×4 (05:31→23:27)
[2017-09-07 07:43] LABS: HEMATOCRIT 26.4 % (36.0-48.0); HEMOGLOBIN 8.3 g/dL (12.0-16.0); MEAN CORPUSCULAR HEMOGLOBIN 28.4 pg (28.0-32.0); MEAN CORPUSCULAR VOLUME 90.4 fL (81.0-99.0); PLATELET 184 x1000/uL (130-400); RED BLOOD CELL COUNT 2.92 mill/uL (4.2-5.4); RED CELL DISTRIBUTION WIDTH 16.7 % (11.6-14.6)
[2017-09-07] MEDS: ASPIRIN 81MG EC TABLET PO SCH (09:00)
[2017-09-07] MEDS: AMLODIPINE 10MG TABLET PO SCH (09:00)
[2017-09-07] MEDS: METHYLPREDNISOLONE SOD SUCC 40 MG/ML VIAL IV SCH (09:00)
[2017-09-07] MEDS: BUDESONIDE 0.5MG/2ML NEB HHN SCH ×2 (09:00→21:50)
[2017-09-07] MEDS: MAGNESIUM/ALUMINUM HYDROXIDE/SIMETHICONE 30ML UDC PO PRN (11:07)
[2017-09-07] MEDS: HYDROCODONE/APAP 7.5/325MG 1 TAB TABLET PO PRN ×2 (11:10→23:31)
[2017-09-07 15:53] LABS: PLATELET ESTIMATE NORMAL
[2017-09-07] MEDS ORDERED: EPOETIN ALFA 10000UNITS/ML VIAL SUBCUT SCH (21:00)
[2017-09-08] VITALS (10 sets, daily range): BP systolic 100–143; BP diastolic 55–80
[2017-09-08] MEDS: ACETAMINOPHEN 325MG TABLET PO PRN (00:29)
[2017-09-08] MEDS: IPRATROPIUM/ALBUTEROL 0.5-3(2.5)MG/3ML NEB HHN SCH ×6 (01:15→20:08)
[2017-09-08] MEDS: MORPHINE SULFATE 4 MG/ML CPJ (NOT FOR IM USE) IV PRN ×3 (02:21→22:33)
[2017-09-08] MEDS: NITROGLYCERIN OINT 1GM/INCH UDPKT TD SCH ×3 (06:44→17:05)
[2017-09-08] MEDS: AMLODIPINE 10MG TABLET PO SCH (08:12)
[2017-09-08] MEDS: ASPIRIN 81MG EC TABLET PO SCH (08:12)
[2017-09-08] MEDS: METHYLPREDNISOLONE SOD SUCC 40 MG/ML VIAL IV SCH (08:12)
[2017-09-08] MEDS: BUDESONIDE 0.5MG/2ML NEB HHN SCH ×2 (08:24→20:08)
[2017-09-08] MEDS: MAGNESIUM/ALUMINUM HYDROXIDE/SIMETHICONE 30ML UDC PO PRN (11:12)
[2017-09-09] MEDS: IPRATROPIUM/ALBUTEROL 0.5-3(2.5)MG/3ML NEB HHN SCH ×7 (00:25→21:31)
[2017-09-09] MEDS: NITROGLYCERIN OINT 1GM/INCH UDPKT TD SCH ×4 (01:05→18:00)
[2017-09-09] MEDS: ACETAMINOPHEN 325MG TABLET PO PRN ×2 (01:06→16:57)
[2017-09-09 06:17] LABS: HEMATOCRIT. 24.3 % (36.0-48.0); HEMOGLOBIN. 7.9 g/dL (12.0-16.0); MEAN CORPUSCULAR HEMOGLOBIN 28.7 pg (28.0-32.0); PLATELET 275 x1000/uL (130-400); RED BLOOD CELL COUNT 2.73 mill/uL (4.2-5.4); RED CELL DISTRIBUTION WIDTH 16.3 % (11.6-14.6)
[2017-09-09 06:59] LABS: CHLORIDE 97 mEq/L (98-107)
[2017-09-09 08:00] VITALS: BP 138/65
[2017-09-09] MEDS: BUDESONIDE 0.5MG/2ML NEB HHN SCH ×2 (09:08→21:31)
[2017-09-09] MEDS: METHYLPREDNISOLONE SOD SUCC 40 MG/ML VIAL IV SCH (09:16)
[2017-09-09] MEDS: ASPIRIN 81MG EC TABLET PO SCH (09:16)
[2017-09-09] MEDS: AMLODIPINE 10MG TABLET PO SCH (09:16)
[2017-09-09 12:15] VITALS: BP 130/56
[2017-09-09] MEDS: ONDANSETRON HCL 4MG/2ML VIAL IV PRN ×2 (14:28→20:21)
[2017-09-09] MEDS: MAGNESIUM/ALUMINUM HYDROXIDE/SIMETHICONE 30ML UDC PO PRN (14:28)
[2017-09-09] MEDS ORDERED: PANTOPRAZOLE SODIUM 40 MG/VIAL IV NR (14:45)
[2017-09-09] MEDS ORDERED: CALCIUM CARBONATE 500MG TABLET CHEW PO PRN (15:30)
[2017-09-09 16:00] VITALS: BP 139/64
[2017-09-09 17:44] LABS: PLATELET ESTIMATE NORMAL
[2017-09-09 20:00] VITALS: BP 120/68
[2017-09-09] MEDS: PANTOPRAZOLE SODIUM 40 MG/VIAL IV SCH (20:21)
[2017-09-09] MEDS: MORPHINE SULFATE 4 MG/ML CPJ (NOT FOR IM USE) IV PRN (20:22)
[2017-09-09 22:00] VITALS: BP 136/65
[2017-09-10] VITALS (10 sets, daily range): BP systolic 98–147; BP diastolic 50–66
[2017-09-10] MEDS: NITROGLYCERIN OINT 1GM/INCH UDPKT TD SCH ×3 (00:31→12:19)
[2017-09-10] MEDS: HYDROCODONE/APAP 7.5/325MG 1 TAB TABLET PO PRN (00:33)
[2017-09-10 06:41] LABS: HEMATOCRIT 26.2 % (36.0-48.0); HEMATOCRIT. 26.2 % (36.0-48.0); HEMOGLOBIN 8.3 g/dL (12.0-16.0); HEMOGLOBIN. 8.3 g/dL (12.0-16.0); MEAN CORPUSCULAR HEMOGLOBIN 28.5 pg (28.0-32.0); MEAN CORPUSCULAR VOLUME 90.2 fL (81.0-99.0); MEAN PLATELET VOLUME 8.7 fl (7.4-10.4); PLATELET 273 x1000/uL (130-400); RED CELL DISTRIBUTION WIDTH 16.6 % (11.6-14.6)
[2017-09-10] MEDS: MORPHINE SULFATE 4 MG/ML CPJ (NOT FOR IM USE) IV PRN (06:55)
[2017-09-10] MEDS: ONDANSETRON HCL 4MG/2ML VIAL IV PRN (06:55)
[2017-09-10 07:33] LABS: CHLORIDE 98 mEq/L (98-107)
[2017-09-10 07:54] LABS: TOTAL IRON BINDING CAPACITY 174 ug/dL (250-450)
[2017-09-10] MEDS: IPRATROPIUM/ALBUTEROL 0.5-3(2.5)MG/3ML NEB HHN SCH ×3 (08:26→15:58)
[2017-09-10] MEDS: BUDESONIDE 0.5MG/2ML NEB HHN SCH (08:26)
[2017-09-10] MEDS: PANTOPRAZOLE SODIUM 40 MG/VIAL IV SCH (08:39)
[2017-09-10] MEDS: AMLODIPINE 10MG TABLET PO SCH (08:43)
[2017-09-10] MEDS: ASPIRIN 81MG EC TABLET PO SCH (11:16)
[2017-09-10] MEDS: MAGNESIUM/ALUMINUM HYDROXIDE/SIMETHICONE 30ML UDC PO PRN (14:55)
[2017-09-10 19:18] LABS: PLATELET ESTIMATE NORMAL
[2017-09-10] MEDS ORDERED: PANTOPRAZOLE 40MG DR TABLET PO SCH (21:00)
== END 2017-09-10 19:30 | disposition home health service (06) | DRG 291 ==
LOC: ER 09:31 → 5EST 10:49 → UNDOADMIN 10:51 → EDBEDREQ 10:53 → EDBEDREQSVC 10:53 → CANRESERV 14:03 → ENRESERV 14:03 → SUPCPDRO 14:10 → EDBEDREQSVC 14:42 → ENRESERV 15:26
PROVIDERS: ADMIT Hospitalist; ATTEND Hospitalist
PROC: 5A09357 Assistance with Respiratory Ventilation, Less than 24 Consecutive Hours, Continuous Positive Airway Pressure (ICD-10-PCS; principal; 2017-09-05)
PROC: 5A1D70Z Performance of Urinary Filtration, Intermittent, Less than 6 Hours Per Day (ICD-10-PCS; 2017-09-05)
PROC: 5A1D70Z Performance of Urinary Filtration, Intermittent, Less than 6 Hours Per Day (ICD-10-PCS; 2017-09-07)
PROC: 5A1D70Z Performance of Urinary Filtration, Intermittent, Less than 6 Hours Per Day (ICD-10-PCS; 2017-09-09)
PROC: 5A1D70Z Performance of Urinary Filtration, Intermittent, Less than 6 Hours Per Day (ICD-10-PCS; 2017-09-10)
DX: I13.2 Hypertensive heart and chronic kidney disease with heart failure and with stage 5 chronic kidney disease, or end stage renal disease (principal); I50.43 Acute on chronic combined systolic (congestive) and diastolic (congestive) heart failure; J96.00 Acute respiratory failure, unspecified whether with hypoxia or hypercapnia; J84.9 Interstitial pulmonary disease, unspecified; E44.0 Moderate protein-calorie malnutrition; I27.20 Pulmonary hypertension, unspecified; N18.6 End stage renal disease; J44.1 Chronic obstructive pulmonary disease with (acute) exacerbation; E11.22 Type 2 diabetes mellitus with diabetic chronic kidney disease; K21.9 Gastro-esophageal reflux disease without esophagitis; D64.9 Anemia, unspecified; E87.5 Hyperkalemia; F17.200 Nicotine dependence, unspecified, uncomplicated; I25.10 Atherosclerotic heart disease of native coronary artery without angina pectoris; Z86.711 Personal history of pulmonary embolism; Z91.15 Patient's noncompliance with renal dialysis; Z99.2 Dependence on renal dialysis; Z99.81 Dependence on supplemental oxygen; Z88.8 Allergy status to other drugs, medicaments and biological substances; Z79.82 Long term (current) use of aspirin; Z79.899 Other long term (current) drug therapy; Z72.89 Other problems related to lifestyle; Z68.21 Body mass index [BMI] 21.0-21.9, adult
CPT/HCPCS: 36415; 36600; 71045; 71250; 80048; 80053; 82375; 82550; 82553; 82805; 83540; 83550; 83605; 83690; 83735; 84484; 85025; 85027; 85610; 87040; 93005; 94640; 94660; 96374; 97110; 97162; 99291; A6261; C9113; J0885; J2270; J2405; J2920; J2930; J7030; J7611; J7620; J7626

== ENCOUNTER 2017-09-15 02:03 | Inpatient (IN) | payer MEDICARE, OTHER ==
[~2017-09-15] VITALS: Ht 165.1 cm; Wt 54.4 kg
[2017-09-15] MEDS ORDERED: ONDANSETRON HCL 4MG/2ML VIAL IV STA (02:51)
[2017-09-15] MEDS ORDERED: ASPIRIN 81MG TABLET PO ONE (03:00)
[2017-09-15 03:28] LABS: HEMATOCRIT. 26.3 % (36.0-48.0); HEMOGLOBIN. 8.3 g/dL (12.0-16.0); MEAN CORPUSCULAR VOLUME 92.3 fL (81.0-99.0); MEAN PLATELET VOLUME 7.7 fl (7.4-10.4); PLATELET 421 x1000/uL (130-400); RED BLOOD CELL COUNT 2.85 mill/uL (4.2-5.4)
[2017-09-15 03:33] LABS: CHLORIDE 101 mEq/L (98-107)
[2017-09-15 03:37] LABS: ETHANOL BLOOD < 10 mg/dL
[2017-09-15 03:40] LABS: INR 1.1; PROTHROMBIN TIME 11.3 sec (9.4-11.6)
[2017-09-15] MEDS ORDERED: FUROSEMIDE 100MG/10ML VIAL IV NR (04:06)
[2017-09-15] MEDS ORDERED: SODIUM POLYSTYRENE SULFONATE 15 G/60 ML BOT PO NR (04:15)
[2017-09-15] MEDS ORDERED: CALCIUM CHLORIDE 1GM/10ML SYR IV NR (04:15)
[2017-09-15] MEDS ORDERED: INSULIN REGULAR (HUMULIN R) 300UNITS/3ML IV NR (04:15)
[2017-09-15] MEDS ORDERED: SODIUM BICARBONATE 8.4% 1 MEQ/ML 50ML SYR IV NR (04:15)
[2017-09-15] MEDS ORDERED: DEXTROSE 50% WATER 50ML SYRINGE IV NR (04:15)
[2017-09-15] MEDS ORDERED: ALBUTEROL (0.083%) 2.5MG/3ML NEB HHN NR (04:15)
[2017-09-15] MEDS ORDERED: ALBUTEROL (0.5%) 2.5MG/0.5ML NEB HHN ONE (04:39)
[2017-09-15 04:52] LABS: PLATELET ESTIMATE NORMAL
[2017-09-15 06:01] LABS: CLARITY URINE TURBID (CLEAR); COLOR URINE DARK YELLOW (YELLOW); KETONES URINE NEGATIVE (NEGATIVE); LEUKOCYTE ESTERASE URINE 2+ (NEGATIVE); NITRITE URINE NEGATIVE (NEGATIVE); OCCULT BLOOD URINE 3+ (NEGATIVE); PROTEIN URINE 4+ (NEGATIVE); SPECIFIC GRAVITY URINE 1.031 (1.005-1.030); UROBILINOGEN URINE 0.2 E.U./dL (0.2-1.0)
[2017-09-15] MEDS ORDERED: GUAIFENESIN 200MG/10ML SUGAR FREE UDC PO PRN (07:00)
[2017-09-15] MEDS ORDERED: MAGNESIUM/ALUMINUM HYDROXIDE/SIMETHICONE 30ML UDC PO PRN (07:00)
[2017-09-15] MEDS ORDERED: CLONIDINE 0.1MG TABLET PO PRN (07:00)
[2017-09-15] MEDS ORDERED: IPRATROPIUM/ALBUTEROL 0.5-3(2.5)MG/3ML NEB INH PRN (07:00)
[2017-09-15] MEDS ORDERED: NA PHOS,M-B/NA PHOS,DI-BA ENEMA 118ML PR PRN (07:00)
[2017-09-15] MEDS ORDERED: LORAZEPAM 2MG/ML CPJ IV PRN (07:00)
[2017-09-15] MEDS ORDERED: ONDANSETRON HCL 4MG/2ML VIAL IV PRN (07:00)
[2017-09-15 07:07] LABS: *AMPHETAMINES SCREEN URINE NEGATIVE (NEGATIVE); *BARBITURATES SCREEN URINE NEGATIVE (NEGATIVE); *BENZODIAZEPINES SCREEN URINE NEGATIVE (NEGATIVE)
[2017-09-15 07:08] LABS: *COCAINE SCREEN URINE NEGATIVE (NEGATIVE); CANNABINOID URINE SCREEN NEGATIVE (NEGATIVE); METHADONE URINE SCREEN NEGATIVE (NEGATIVE); OPIATES URINE SCREEN PRESUMTIVE POSITIVE (NEGATIVE); PHENCYCLIDINE URINE SCREEN NEGATIVE (NEGATIVE)
[2017-09-15] MEDS ORDERED: ENOXAPARIN 30MG/0.3ML SYR SUBCUT SCH (09:00)
[2017-09-15] MEDS: ASPIRIN 81MG EC TABLET PO SCH (09:00)
[2017-09-15] MEDS: HYDROCODONE/ACETAMINOPHEN 5/325MG TABLET PO PRN (13:46)
[2017-09-15] MEDS ORDERED: LEVOFLOXACIN 250MG PREMIX 50 ML IV NR (14:15)
[2017-09-15 15:30] VITALS: BP 164/66
[2017-09-15 15:53] VITALS: BP 164/66
[2017-09-15] MEDS: ENOXAPARIN 30MG/0.3ML SYR SUBCUT SCH (17:23)
[2017-09-15] MEDS: SEVELAMER CARBONATE 800 MG TABLET PO SCH (17:24)
[2017-09-15] MEDS: HYDROMORPHONE HCL/PF 2MG/ML CPJ IV PRN (19:59)
[2017-09-15 20:00] VITALS: BP 125/55
[2017-09-15] MEDS: DOCUSATE SODIUM 100MG CAPSULE PO PRN (20:00)
[2017-09-15] MEDS: DIPHENHYDRAMINE 50MG/ML VIAL IV PRN (21:47)
[2017-09-15 23:58] VITALS: BP 149/64
[2017-09-16 04:00] VITALS: BP 116/50
[2017-09-16 06:13] LABS: HEMATOCRIT. 22.5 % (36.0-48.0); HEMOGLOBIN. 7.2 g/dL (12.0-16.0); MEAN CORPUSCULAR HEMOGLOBIN 29.1 pg (28.0-32.0); MEAN CORPUSCULAR VOLUME 90.8 fL (81.0-99.0); PLATELET 364 x1000/uL (130-400); RED BLOOD CELL COUNT 2.48 mill/uL (4.2-5.4); RED CELL DISTRIBUTION WIDTH 17.8 % (11.6-14.6)
[2017-09-16 06:41] LABS: CHLORIDE 95 mEq/L (98-107)
[2017-09-16 06:51] LABS: PHOSPHORUS 2.7 mg/dL (2.5-4.9)
[2017-09-16 06:52] LABS: LDL CHOLESTEROL 72 mg/dL (5-100)
[2017-09-16 06:53] LABS: HDL CHOLESTEROL 100 mg/dL (40-59); T4 FREE 0.84 ng/dL (0.76-1.46)
[2017-09-16 08:00] VITALS: BP 116/49
[2017-09-16] MEDS: SEVELAMER CARBONATE 800 MG TABLET PO SCH ×4 (08:10→18:07)
[2017-09-16] MEDS: ASPIRIN 81MG EC TABLET PO SCH ×2 (09:00→09:14)
[2017-09-16] MEDS: FOLIC ACID/VITAMIN B COMP W-C TABLET PO SCH ×2 (09:00→09:14)
[2017-09-16 12:00] VITALS: BP 122/60
[2017-09-16] MEDS ORDERED: LEVOFLOXACIN 250MG PREMIX 50 ML IV SCH (13:15)
[2017-09-16] MEDS ORDERED: LEVOFLOXACIN 500MG PREMIX 100 ML IV SCH (13:15)
[2017-09-16] MEDS: LOSARTAN POTASSIUM 25 MG TABLET PO SCH (13:43)
[2017-09-16 14:06] LABS: PLATELET ESTIMATE NORMAL
[2017-09-16] MEDS: HYDROCODONE/ACETAMINOPHEN 5/325MG TABLET PO PRN (14:11)
[2017-09-16 16:00] VITALS: BP 136/61
[2017-09-16] MEDS: ENOXAPARIN 30MG/0.3ML SYR SUBCUT SCH (18:06)
[2017-09-16] MEDS: DOCUSATE SODIUM 100MG CAPSULE PO PRN (18:09)
[2017-09-16 20:00] VITALS: BP 125/60
[2017-09-16] MEDS: EPOETIN ALFA 4000UNITS/ML VIAL SUBCUT SCH (21:23)
[2017-09-16] MEDS: FAMOTIDINE 20MG TABLET PO SCH (21:23)
[2017-09-16] MEDS: CARVEDILOL 3.125 MG TABLET PO SCH (21:23)
[2017-09-17] VITALS: BP 147/66
[2017-09-17] MEDS: IPRATROPIUM/ALBUTEROL 0.5-3(2.5)MG/3ML NEB HHN SCH ×5 (02:00→20:31)
[2017-09-17 04:00] VITALS: BP 123/71
[2017-09-17 06:00] LABS: HEMATOCRIT. 23.2 % (36.0-48.0); HEMOGLOBIN. 7.4 g/dL (12.0-16.0); MEAN CORPUSCULAR HEMOGLOBIN 29.2 pg (28.0-32.0); MEAN CORPUSCULAR VOLUME 91.7 fL (81.0-99.0); PLATELET 369 x1000/uL (130-400); RED BLOOD CELL COUNT 2.53 mill/uL (4.2-5.4); RED CELL DISTRIBUTION WIDTH 18.4 % (11.6-14.6)
[2017-09-17 07:29] LABS: FOLIC ACID (FOLATE) SERUM 9.5 ng/mL (>5.38)
[2017-09-17 08:00] VITALS: BP 144/80
[2017-09-17] MEDS: SEVELAMER CARBONATE 800 MG TABLET PO SCH ×3 (08:46→17:40)
[2017-09-17] MEDS: FOLIC ACID/VITAMIN B COMP W-C TABLET PO SCH (08:46)
[2017-09-17] MEDS: ASPIRIN 81MG EC TABLET PO SCH (08:47)
[2017-09-17] MEDS: LOSARTAN POTASSIUM 25 MG TABLET PO SCH (08:47)
[2017-09-17] MEDS: CARVEDILOL 3.125 MG TABLET PO SCH ×2 (08:47→20:33)
[2017-09-17] MEDS: HYDROCODONE/ACETAMINOPHEN 5/325MG TABLET PO PRN (10:58)
[2017-09-17 12:00] VITALS: BP 119/50
[2017-09-17 16:00] VITALS: BP 129/54
[2017-09-17] MEDS: ENOXAPARIN 30MG/0.3ML SYR SUBCUT SCH (16:36)
[2017-09-17] MEDS: LEVOFLOXACIN 250MG PREMIX 50 ML IV SCH (16:41)
[2017-09-17] MEDS: ACETAMINOPHEN 325MG TABLET PO PRN ×2 (17:39→23:35)
[2017-09-17 19:49] LABS: PLATELET ESTIMATE NORMAL
[2017-09-17 20:00] VITALS: BP 144/65
[2017-09-17] MEDS: FAMOTIDINE 20MG TABLET PO SCH (20:33)
[2017-09-17] MEDS: HYDROMORPHONE HCL/PF 2MG/ML CPJ IV PRN (20:42)
[2017-09-18] VITALS (7 sets, daily range): BP systolic 90–152; BP diastolic 36–69
[2017-09-18] MEDS: IPRATROPIUM/ALBUTEROL 0.5-3(2.5)MG/3ML NEB HHN SCH ×4 (02:23→20:52)
[2017-09-18] MEDS: HYDROMORPHONE HCL/PF 2MG/ML CPJ IV PRN (05:07)
[2017-09-18 07:14] LABS: HEMATOCRIT. 22.1 % (36.0-48.0); HEMOGLOBIN. 7.1 g/dL (12.0-16.0); MEAN CORPUSCULAR HEMOGLOBIN 29.5 pg (28.0-32.0); MEAN CORPUSCULAR VOLUME 92.4 fL (81.0-99.0); PLATELET 313 x1000/uL (130-400); RED BLOOD CELL COUNT 2.39 mill/uL (4.2-5.4); RED CELL DISTRIBUTION WIDTH 17.6 % (11.6-14.6)
[2017-09-18] MEDS: ASPIRIN 81MG EC TABLET PO SCH (09:28)
[2017-09-18] MEDS: LOSARTAN POTASSIUM 25 MG TABLET PO SCH (09:28)
[2017-09-18] MEDS: FOLIC ACID/VITAMIN B COMP W-C TABLET PO SCH (09:28)
[2017-09-18] MEDS: SEVELAMER CARBONATE 800 MG TABLET PO SCH ×3 (09:29→17:53)
[2017-09-18] MEDS: CARVEDILOL 3.125 MG TABLET PO SCH ×2 (09:29→20:32)
[2017-09-18 11:25] LABS: PLATELET ESTIMATE NORMAL
[2017-09-18] MEDS: HYDROCODONE/ACETAMINOPHEN 5/325MG TABLET PO PRN (14:09)
[2017-09-18] MEDS: ENOXAPARIN 30MG/0.3ML SYR SUBCUT SCH (17:00)
[2017-09-18] MEDS ORDERED: BISACODYL 5MG TABLET PO SCH (18:00)
[2017-09-18] MEDS: FAMOTIDINE 20MG TABLET PO SCH (20:30)
[2017-09-18] MEDS: DOCUSATE SODIUM 250MG CAPSULE PO SCH (20:31)
[2017-09-18] MEDS: DIPHENHYDRAMINE 50MG/ML VIAL IV PRN (20:33)
[2017-09-18] MEDS ORDERED: NITROFURANTOIN 100MG M/M CAPSULE PO SCH (21:00)
[2017-09-18] MEDS: ACETAMINOPHEN 325MG TABLET PO PRN (21:30)
[2017-09-18] MEDS: EPOETIN ALFA 4000UNITS/ML VIAL SUBCUT SCH (21:30)
[2017-09-19] VITALS (8 sets, daily range): BP systolic 98–163; BP diastolic 52–75
[2017-09-19] MEDS: HYDROCODONE/ACETAMINOPHEN 5/325MG TABLET PO PRN ×3 (01:06→18:53)
[2017-09-19] MEDS: HYDROMORPHONE HCL/PF 2MG/ML CPJ IV PRN ×2 (04:38→20:24)
[2017-09-19] MEDS: IPRATROPIUM/ALBUTEROL 0.5-3(2.5)MG/3ML NEB HHN SCH ×3 (08:07→20:53)
[2017-09-19 08:58] LABS: HEMATOCRIT. 21.5 % (36.0-48.0); MEAN CORPUSCULAR HEMOGLOBIN 29.1 pg (28.0-32.0); PLATELET 325 x1000/uL (130-400); RED BLOOD CELL COUNT 2.31 mill/uL (4.2-5.4); RED CELL DISTRIBUTION WIDTH 17.4 % (11.6-14.6)
[2017-09-19] MEDS: DOCUSATE SODIUM 250MG CAPSULE PO SCH (09:00)
[2017-09-19] MEDS ORDERED: BISACODYL 5MG TABLET PO PRN (09:00)
[2017-09-19] MEDS: LOSARTAN POTASSIUM 25 MG TABLET PO SCH (09:00)
[2017-09-19 09:17] LABS: HEMOGLOBIN. 6.7 g/dL (12.0-16.0)
[2017-09-19] MEDS: FOLIC ACID/VITAMIN B COMP W-C TABLET PO SCH (09:19)
[2017-09-19] MEDS: ASPIRIN 81MG EC TABLET PO SCH (09:19)
[2017-09-19] MEDS: CARVEDILOL 3.125 MG TABLET PO SCH ×2 (09:28→20:23)
[2017-09-19] MEDS: SEVELAMER CARBONATE 800 MG TABLET PO SCH ×3 (09:28→17:41)
[2017-09-19] MEDS: LACTULOSE 20G/30ML UDC PO PRN (11:24)
[2017-09-19] MEDS: ACETAMINOPHEN 325MG TABLET PO PRN (15:50)
[2017-09-19] MEDS: LEVOFLOXACIN 250MG PREMIX 50 ML IV SCH (17:34)
[2017-09-19] MEDS: ENOXAPARIN 30MG/0.3ML SYR SUBCUT SCH (17:40)
[2017-09-19] MEDS: LINEZOLID 600MG TABLET PO SCH (17:51)
[2017-09-19 19:01] LABS: PLATELET ESTIMATE NORMAL
[2017-09-19] MEDS: FAMOTIDINE 20MG TABLET PO SCH (20:23)
[2017-09-20] VITALS: BP 141/68
[2017-09-20] MEDS: DIPHENHYDRAMINE 50MG/ML VIAL IV PRN (01:19)
[2017-09-20] MEDS: IPRATROPIUM/ALBUTEROL 0.5-3(2.5)MG/3ML NEB HHN SCH (02:35)
[2017-09-20 04:00] VITALS: BP 136/65
[2017-09-20 06:52] LABS: HEMATOCRIT. 25.2 % (36.0-48.0); HEMOGLOBIN. 8.2 g/dL (12.0-16.0); MEAN CORPUSCULAR VOLUME 91.6 fL (81.0-99.0); MEAN PLATELET VOLUME 7.9 fl (7.4-10.4); PLATELET 278 x1000/uL (130-400); RED BLOOD CELL COUNT 2.75 mill/uL (4.2-5.4); RED CELL DISTRIBUTION WIDTH 16.3 % (11.6-14.6)
[2017-09-20 07:47] VITALS: BP 125/50
[2017-09-20] MEDS: ACETAMINOPHEN 325MG TABLET PO PRN (09:09)
[2017-09-20] MEDS: FOLIC ACID/VITAMIN B COMP W-C TABLET PO SCH (09:09)
[2017-09-20] MEDS: LOSARTAN POTASSIUM 25 MG TABLET PO SCH (09:09)
[2017-09-20] MEDS: LINEZOLID 600MG TABLET PO SCH ×2 (09:10→17:00)
[2017-09-20] MEDS: SEVELAMER CARBONATE 800 MG TABLET PO SCH ×3 (09:10→18:04)
[2017-09-20] MEDS: DOCUSATE SODIUM 250MG CAPSULE PO SCH (09:10)
[2017-09-20] MEDS: CARVEDILOL 3.125 MG TABLET PO SCH (09:10)
[2017-09-20] MEDS: ASPIRIN 81MG EC TABLET PO SCH (09:10)
[2017-09-20] MEDS: LACTULOSE 20G/30ML UDC PO PRN (11:05)
[2017-09-20] MEDS ORDERED: NA PHOS,M-B/NA PHOS,DI-BA ENEMA 118ML PR PRN (11:15)
[2017-09-20 12:00] VITALS: BP 123/56
[2017-09-20 16:00] VITALS: BP 155/60
[2017-09-20 16:55] VITALS: BP 155/60
[2017-09-20] MEDS: ENOXAPARIN 30MG/0.3ML SYR SUBCUT SCH (17:00)
[2017-09-20 20:26] LABS: PLATELET ESTIMATE NORMAL
== END 2017-09-20 18:50 | disposition home or self-care (01) | DRG 871 ==
LOC: ER 02:03 → 7WST 04:04 → ENRESERV 13:23 → 7WST 09-17 16:55
PROVIDERS: ADMIT Internal Medicine; ATTEND Internal Medicine
PROC: 5A1D70Z Performance of Urinary Filtration, Intermittent, Less than 6 Hours Per Day (ICD-10-PCS; 2017-09-17)
PROC: 30233N1 Transfusion of Nonautologous Red Blood Cells into Peripheral Vein, Percutaneous Approach (ICD-10-PCS; principal; 2017-09-18)
PROC: 5A1D70Z Performance of Urinary Filtration, Intermittent, Less than 6 Hours Per Day (ICD-10-PCS; 2017-09-19)
DX: A41.9 Sepsis, unspecified organism (principal); N18.6 End stage renal disease; J96.00 Acute respiratory failure, unspecified whether with hypoxia or hypercapnia; I13.2 Hypertensive heart and chronic kidney disease with heart failure and with stage 5 chronic kidney disease, or end stage renal disease; G93.40 Encephalopathy, unspecified; E44.0 Moderate protein-calorie malnutrition; J18.1 Lobar pneumonia, unspecified organism; E11.22 Type 2 diabetes mellitus with diabetic chronic kidney disease; E11.51 Type 2 diabetes mellitus with diabetic peripheral angiopathy without gangrene; I08.1 Rheumatic disorders of both mitral and tricuspid valves; I50.22 Chronic systolic (congestive) heart failure; N39.0 Urinary tract infection, site not specified; I42.9 Cardiomyopathy, unspecified; I27.20 Pulmonary hypertension, unspecified; E11.649 Type 2 diabetes mellitus with hypoglycemia without coma; E87.5 Hyperkalemia; I48.91 Unspecified atrial fibrillation; I25.10 Atherosclerotic heart disease of native coronary artery without angina pectoris; K57.30 Diverticulosis of large intestine without perforation or abscess without bleeding; K21.9 Gastro-esophageal reflux disease without esophagitis; F17.200 Nicotine dependence, unspecified, uncomplicated; J44.9 Chronic obstructive pulmonary disease, unspecified; F17.210 Nicotine dependence, cigarettes, uncomplicated; B95.2 Enterococcus as the cause of diseases classified elsewhere; K59.00 Constipation, unspecified; D64.9 Anemia, unspecified; I45.10 Unspecified right bundle-branch block; Z16.21 Resistance to vancomycin; Z99.2 Dependence on renal dialysis; Z91.15 Patient's noncompliance with renal dialysis; Z99.81 Dependence on supplemental oxygen; Z87.01 Personal history of pneumonia (recurrent); Z86.73 Personal history of transient ischemic attack (TIA), and cerebral infarction without residual deficits; Z86.718 Personal history of other venous thrombosis and embolism; Z82.49 Family history of ischemic heart disease and other diseases of the circulatory system; Z86.711 Personal history of pulmonary embolism; Z79.82 Long term (current) use of aspirin; Z79.899 Other long term (current) drug therapy; Z88.8 Allergy status to other drugs, medicaments and biological substances
CPT/HCPCS: 36415; 71045; 74176; 80048; 80053; 80061; 80305; 81003; 82270; 82607; 82728; 82746; 82962; 83540; 83550; 83690; 84100; 84439; 84443; 84484; 85018; 85025; 85610; 86850; 86900; 86920; 87077; 87086; 87186; 93005; 94640; 96374; 96375; 97162; 99291; C1893; G0482; J0885; J1170; J1200; J1650; J1815; J1940; J1956; J2405; J3490; J7030; J7050; J7611; J7620; P9016